=== PATIENT | female | born 1990 | race Caucasian/White ===

== ENCOUNTER 2022-01-13 21:25 | Emergency (ER) | payer OTHER ==
[~2022-01-13] VITALS: Ht 165.1 cm; Wt 81.6 kg
[2022-01-14 01:24] LABS: BASOPHILS % 0.6 % (0.0-2.0); EOSINOPHILS % 5.4 % (0.0-5.0); HEMATOCRIT. 42.2 % (36.0-48.0); HEMOGLOBIN. 14.1 g/dL (12.0-16.0); LYMPHOCYTES % 35.1 % (20.0-50.0); MEAN CORPUSCULAR HEMOGLOBIN 32.8 pg (28.0-32.0); MEAN CORPUSCULAR VOLUME 98.4 fL (81.0-99.0); MEAN PLATELET VOLUME 8.4 fl (7.4-10.4); MONOCYTES % 5.8 % (2.0-8.0); NEUTROPHILS % 53.1 % (40.0-76.0); PLATELET 245 x1000/uL (130-400); RED BLOOD CELL COUNT 4.29 mill/uL (4.2-5.4); RED CELL DISTRIBUTION WIDTH 14.4 % (11.6-14.6)
[2022-01-14 01:35] LABS: CHLORIDE 109 mEq/L (98-107)
[2022-01-14] MEDS ORDERED: HYDROCODONE/ACETAMINOPHEN 5/325MG TABLET PO ONE (01:45)
[2022-01-14 01:46] LABS: B-HCG QUANTITATIVE < 1 mIU/mL (<3)
[2022-01-14] MEDS ORDERED: HYDR-4001 MT (02:37)
[2022-01-14 02:40] VITALS: BP 116/78
== END 2022-01-14 02:44 | disposition home or self-care (01) ==
LOC: ER 21:25
DX: O03.9 Complete or unspecified spontaneous abortion without complication (principal); F41.9 Anxiety disorder, unspecified; Y08.89XA Assault by other specified means, initial encounter; Y93.89 Activity, other specified; Y92.89 Other specified places as the place of occurrence of the external cause
CPT/HCPCS: 36415; 76830; 76856; 80053; 81025; 84702; 85025; 86850; 86900; 99284

== ENCOUNTER 2024-02-22 10:09 | Emergency (ER) | payer SELFPAY ==
[~2024-02-22] VITALS: Ht 170.2 cm; Wt 66.0 kg
[~2024-02-22 10:09] MED LIST: HYDR-4001 MT
[2024-02-22 10:18] VITALS: O2SAT 100
[2024-02-22] MEDS ORDERED: SULF1TAB48 MT (10:57)
[2024-02-22 11:09] VITALS: BP 128/77; PULSE 88; RESP 18; TEMP 36.72516; O2SAT 100
== END 2024-02-22 11:10 | disposition home or self-care (01) ==
LOC: ER 10:09
DX: L03.313 Cellulitis of chest wall (principal); F41.9 Anxiety disorder, unspecified
CPT/HCPCS: 99283

== ENCOUNTER 2024-03-28 17:20 | Emergency (ER) | payer MEDICAID ==
[~2024-03-28] VITALS: Ht 167.6 cm; Wt 70.0 kg
[~2024-03-28 17:20] MED LIST changes: +SULF1TAB48 MT
[2024-03-28 17:24] VITALS: BP 110/68; PULSE 110; RESP 18; TEMP 98.4; O2SAT 97
[2024-03-28 18:33] LABS: CLARITY URINE CLEAR (CLEAR); COLOR URINE YELLOW (YELLOW); GLUCOSE URINE NEGATIVE (NEGATIVE); KETONES URINE 1+ (NEGATIVE); LEUKOCYTE ESTERASE URINE TRACE (NEGATIVE); NITRITE URINE NEGATIVE (NEGATIVE); OCCULT BLOOD URINE NEGATIVE (NEGATIVE); PROTEIN URINE NEGATIVE (NEGATIVE); SPECIFIC GRAVITY URINE 1.021 (1.005-1.030)
[2024-03-28 18:44] LABS: HEMATOCRIT. 43.7 % (36.0-48.0); HEMOGLOBIN. 14.6 g/dL (12.0-16.0); MEAN CORPUSCULAR HEMOGLOBIN 32.4 pg (28.0-32.0); MEAN CORPUSCULAR HGB CONC 33.4 g/dL (31.0-37.0); MEAN CORPUSCULAR VOLUME 96.8 fL (81.0-99.0); MEAN PLATELET VOLUME 7.5 fl (7.4-10.4); PLATELET 223 x1000/uL (130-400); RED BLOOD CELL COUNT 4.51 mill/uL (4.2-5.4); RED CELL DISTRIBUTION WIDTH 13.2 % (11.6-14.6); WHITE BLOOD COUNT 3.1 x1000/uL (4.5-11.0)
[2024-03-28] MEDS: IBUPROFEN 600MG TABLET PO STA (18:44)
[2024-03-28 18:45] LABS: DIFFERENTIAL COMMENT 1
[2024-03-28 18:46] LABS: CHLORIDE 103 mEq/L (98-107); POTASSIUM 4.4 mEq/L (3.5-5.1); SODIUM 135 mEq/L (136-145)
[2024-03-28] MEDS: ACETAMINOPHEN 325MG TABLET PO STA (18:46)
[2024-03-28 18:47] LABS: CARBON DIOXIDE 25 mEq/L (21-32)
[2024-03-28 18:48] LABS: CALCIUM 9.7 mg/dL (8.7-10.4)
[2024-03-28 18:50] LABS: PROTHROMBIN TIME 11.6 sec (9.6-11.0)
[2024-03-28 18:52] LABS: CREATININE 1.1 mg/dL (0.6-1.0); GLUCOSE 102 mg/dL (70-105)
[2024-03-28 18:53] LABS: UREA NITROGEN BLOOD 11 mg/dL (9-23)
[2024-03-28 19:00] LABS: TROPONIN I HIGH SENSITIVITY < 4 ng/L (3.0-34)
[2024-03-28 19:07] LABS: BACTERIA URINE 1+; RBC URINE 0-2 /hpf (0-2); SQUAMOUS EPITHELIAL CELL URINE 1+ /lpf (RARE/1+); WBC URINE 0-2 /hpf (0-2)
[2024-03-28 19:07] LABS: HCG SCREEN NEGATIVE
[2024-03-28 21:18] LABS: TROPONIN I HIGH SENSITIVITY < 4 ng/L (3.0-34)
[2024-03-28 21:26] LABS: PLATELET ESTIMATE NORMAL
== END 2024-03-28 20:20 ==
LOC: ER 17:20
DX: R51.9 Headache, unspecified (principal); M54.9 Dorsalgia, unspecified; R07.9 Chest pain, unspecified
CPT/HCPCS: 36415; 71045; 80048; 81003; 81025; 84484; 84703; 85025; 93005; 99285